=== PATIENT | female | born 1990 | race Caucasian/White ===

== ENCOUNTER 2017-06-26 15:31 | Emergency (ER) | payer OTHER ==
--- NOTE | 2017-06-26 16:10 | ED Physician Documentation ---
PD HPI SYNCOPE - Stated complaint Stated Complaint: ABD PX/[id number] - Chief complaint Chief Complaint: Abd Pain - History obtained from History obtained from: Patient - History of Present Illness Witnessed: Unwitnessed Timing - onset: Today Preceding symptoms: Nausea / vomiting, Light headed (she is 9 weeks and has been feeling nauseated with less food intake for the past week or more, and trying to drink fluid (target is a gallon of water daily but hard with the nausea). Walked up stairs today and felt lightheaded and then feels that she fainted. Denies injury. SLumped to floor. Still feeling weak. Denies vaginal bleeding, no abd pain.), Generalized weakness. No: Headache, Chest pain, Abdominal pain Associated symptoms: Nausea / vomiting. No: Headache, Chest pain, Palpitations , Abdominal pain Contributing factors: Decreased PO intake, Exertion Injury occurred: Fell. No: Head injury, Neck injury Similar symptoms before: Has not had sx before Recently seen: Not recently seen Review of Systems Constitutional: denies: Fever, Chills Nose: denies: Rhinorrhea / runny nose, Congestion Throat: denies: Sore throat Cardiac: denies: Chest pain / pressure, Palpitations Respiratory: denies: Dyspnea, Cough, Wheezing GI: reports: Nausea, Vomiting. denies: Abdominal Pain, Diarrhea : reports: Now EGA (9 weeks by dates). denies: Dysuria, Frequency, Discharge Skin: denies: Rash, Lesions Neurologic: reports: Generalized weakness, Near syncope. 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 - Present Medications Home Medications: Ambulatory Orders Medication Instructions Recorded Confirmed Doxylamine Succinate [Wal-Napoleon] 25 mg PO Q6H PRN #60 tablet 06/26/17 Ondansetron Odt [Zofran] 4 mg TL Q6H PRN #15 tablet 06/26/17 Pnv95/Ferrous Fumarate/FA 1 each PO DAILY 06/26/17 06/26/17 [ Tablet] Pyridoxine HCl [Vitamin B-6] 25 mg PO BID #60 tablet 06/26/17 - Allergies Allergies/Adverse Reactions: Allergies Allergy/AdvReac Type Severity Reaction Status Date / Time No Known Drug Allergies Allergy Verified 06/26/17 15:46 - Social History Does the pt smoke?: No Smoking Status: Never smoker Does the pt drink ETOH?: No Does the pt have substance abuse?: No - Immunizations Immunizations are current?: Yes PD ED PE NORMAL - Vitals Vital signs reviewed: Yes - General General: Alert and oriented X 3, No acute distress, Well developed/nourished - HEENT HEENT: Atraumatic, PERRL, Ears normal, Pharynx benign. No: Moist mucous membranes - Neck Neck: Supple, no meningeal sign, No adenopathy - Cardiac Cardiac: RRR, No murmur - Respiratory Respiratory: Clear bilaterally - Abdomen Abdomen: Normal bowel sounds, Soft, Non tender, Non distended, No organomegaly - Female Female : Deferred - Rectal Rectal: Deferred - Back Back: No CVA TTP - Extremities Extremities: Normal ROM s pain, No edema, No calf tenderness / cord - Neuro Neuro: Alert and oriented X 3, No motor deficit, Normal speech Results - Vitals Vitals: Oxygen O2 Source Room air - Labs Labs: Laboratory Tests 06/26/17 17:05 Urine Color YELLOW Urine Clarity CLEAR Urine pH 6.0 Ur Specific [place] <=1.005 Urine Protein NEGATIVE Urine Glucose (UA) NEGATIVE Urine Ketones NEGATIVE Urine Occult Blood NEGATIVE Urine Nitrite NEGATIVE Urine Bilirubin NEGATIVE Urine Urobilinogen 0.2 (NORMAL) Ur Leukocyte Esterase NEGATIVE Ur Microscopic Review NOT INDICATED Urine Culture Comments NOT INDICATED Procedures - Bedside sono Bedside sono by EMP: Showing IUP with CRL at 8.5 weeks c/w dates; good heart beat. No free fluid in pelvis. PD MEDICAL DECISION MAKING - ED course Complexity details: reviewed results, re-evaluated patient (feeling much better with fluids and antiemetics. Taking PO well. ), considered differential, d/w patient Departure - Departure Disposition: 01 Home, Self Care Clinical Impression: Nausea/vomiting in , Lightheadedness Condition: Stable Record reviewed to determine appropriate education?: Yes Instructions: ED Preg Morning Sickness Follow-Up: CARLIN DANGELO [Primary Care Provider] - Prescriptions: Pyridoxine HCl [Vitamin B-6] 25 mg PO BID #60 tablet Doxylamine Succinate [Wal-Napoleon] 25 mg PO Q6H PRN #60 tablet PRN Reason: Nausea / Vomiting Ondansetron Odt [Zofran] 4 mg TL Q6H PRN #15 tablet PRN Reason: Nausea / Vomiting Comments: Drink lots of fluids. Regular diet. For the nausea use vitamin B6 twice daily regularly. Add doxylamine every 6 hours as needed for nausea or alternatively ondansetron dissolving tablet every 6 hours for nausea. Tylenol if needed for pains or fevers. Follow-up with your primary care in the next 3- 5 days, call for an appointment. Your appears normal on ultrasound at this point. Return if pains, vaginal bleeding, other concerns. Discharge Date/Time: 06/26/17 18:40
[2017-06-26] MEDS ORDERED: ACETAMINOPHEN 325 MG TABLET PO STA (16:41)
[2017-06-26] MEDS ORDERED: ONDANSETRON ODT 4 MG TABLET TL STA (16:41)
[2017-06-26] MEDS ORDERED: ACETAMINOPHEN 325 MG TABLET PO ONE (17:05)
[2017-06-26] MEDS ORDERED: ONDANSETRON ODT 4 MG TABLET ONE (17:05)
[2017-06-26 17:39] LABS: BILIRUBIN,URINE NEGATIVE (NEGATIVE)
[2017-06-26 17:41] LABS: UA CHARGE (STRIP ONLY) YES; UR CULTURE IF IND NOT INDICATED
[2017-06-26 18:17] VITALS: BP 97/65
== END 2017-06-26 18:40 | disposition home or self-care (01) ==
LOC: ED 15:31
DX: O21.9 Vomiting of pregnancy, unspecified (principal); O26.892 Other specified pregnancy related conditions, second trimester; R42 Dizziness and giddiness; Z3A.09 9 weeks gestation of pregnancy
CPT/HCPCS: 81003; 99283; A9270; Q0162; 81001; 87086